=== PATIENT | male | born 1985 | race American Indian/Alaskan Native ===

== ENCOUNTER 2017-04-24 14:04 | Emergency (ER) | payer SELFPAY ==
[2017-04-24 14:34] VITALS: BMI 46.8
[2017-04-24 14:47] VITALS: RESP 18; TEMP 98.3
--- NOTE | 2017-04-24 15:06 | ED PDOC ---
Arrival/HPI - General Chief Complaint: Weakness/Neurological Deficit Time Seen by Provider: 04/24/17 14:54 Historian: Patient - History of Present Illness Time/Duration: Other (Approximately 3 weeks) Symptom Onset: Gradual Symptom Course: Unchanged Severity Level: Mild Associated Symptoms (Text): 04/24/17 15:04 Patient complains of approximately a 3 week history of numbness in his bilateral feet and his right hand. There is no weakness. No difficulty with ADLs. No difficulty with gait. No speech impediment. No headache dizziness or lightheadedness. No nausea or vomiting. No chest pain palpitations or dyspnea. Patient reports that he works 2 jobs and is on his feet approximately 17 hours per day. He complains of bilateral lower extremity swelling, though I appreciate no edema. Past Medical History - Infectious Disease Hx of Infectious Diseases: None - Tetanus Immunization Tetanus Immunization: Unknown - Past Medical History Past Medical History: No Previous - Cardiac Hx Cardiac Disorders: Yes Hx Hypertension: Yes Other/Comment: ABNORMAL STRESS TEST 25 YRS AGO-REFUSED CARD CATH. - Pulmonary Hx Respiratory Disorders: Yes Hx Asthma: Yes - Neurological Hx Neurological Disorder: No - HEENT Hx HEENT Disorder: No - Renal Hx Renal Disorder: Yes Hx Kidney Stones: Yes (NO SX) - Endocrine/Metabolic Hx Endocrine Disorders: No - Hematological/Oncological Hx Blood Disorders: No - Integumentary Hx Dermatological Disorder: No - Musculoskeletal/Rheumatological Hx Musculoskeletal Disorders: No Hx Falls: No - Gastrointestinal Hx Gastrointestinal Disorders: No - Genitourinary/Gynecological Hx Genitourinary Disorders: No - Psychiatric Hx Psychophysiologic Disorder: Yes (SMOKES CIGARS OCCASIONALLY, EOTH SOCIALLY) Hx Depression: Yes Hx Substance Use: No Other/Comment: OBESTIY - Past Surgical History Past Surgical History: No Previous - Anesthesia Hx Anesthesia: No Hx Anesthesia Reactions: No Hx Malignant Hyperthermia: No - Suicidal Assessment Feels Threatened In Home Enviroment: No Family/Social History - Physician Review Nursing Documentation Reviewed: Yes Family/Social History: Unknown Family HX Smoking Status: Current Some Days Smoker Hx Alcohol Use: Yes (SOCIALLY) Frequency of alcohol use: Socially Hx Substance Use: No Allergies/Home Meds Allergies/Adverse Reactions: Allergies shellfish derived Allergy (Verified 07/04/16 12:49) ANAPHYLAXIS Home Medications: Home Meds Medication Instructions Recorded Confirmed Ezetimibe/Simvastatin 07/04/16 HCTZ/Losartan Potassium [Hyzaar 07/04/16 12.5 mg-50 mg] Review of Systems - Physician Review All systems were reviewed & negative as marked: Yes - Review of Systems Constitutional: Fatigue. absent: Fevers Respiratory: absent: SOB, Cough, Sputum, Wheezing Cardiovascular: absent: Chest Pain, Palpitations, Syncope Gastrointestinal: absent: Abdominal Pain, Constipation, Diarrhea, Nausea, Vomiting Genitourinary Male: absent: Dysuria, Frequency, Hematuria Neurological: absent: Headache, Dizziness, Focal Weakness, Gait Changes, Speech Changes, Facial Droop, Disequilibrium, Seizure Physical Exam Vital Signs Temp Pulse Resp BP Pulse Ox 04/24/17 17:05 69 18 128/69 98 04/24/17 14:06 98.3 F 73 18 130/75 99 Temperature: Afebrile Blood Pressure: Normal Pulse: Regular Respiratory Rate: Normal Appearance: Positive for: Well-Appearing, Non-Toxic, Comfortable, Other (Obese) Pain Distress: None Mental Status: Positive for: Alert and Oriented X 3 - Systems Exam Head: Present: Atraumatic, Normocephalic Pupils: Present: PERRL Extroacular Muscles: Present: EOMI Conjunctiva: Present: Normal Ears: Present: NORMAL TM, Normal Canal. No: Erythema Mouth: Present: Moist Mucous Membranes Pharnyx: No: ERYTHEMA, EXUDATE, TONSILS ENLARGED Neck: Present: Normal Range of Motion. No: Meningeal Signs, MIDLINE TENDERNESS , Paraspinal Tenderness Respiratory/Chest: Present: Clear to Auscultation, Good Air Exchange. No: Respiratory Distress, Accessory Muscle Use Cardiovascular: Present: Regular Rate and Rhythm, Normal S1, S2. No: Murmurs Abdomen: Present: Normal Bowel Sounds. No: Tenderness, Distention, Peritoneal Signs Upper Extremity: Present: Normal Inspection. No: Cyanosis, Edema Lower Extremity: Present: Normal Inspection. No: Edema Neurological: Present: GCS=15, CN II-XII Intact, Speech Normal, Motor Func Grossly Intact, Normal Sensory Function, Normal Cerebellar Funct, Gait Normal Skin: Present: Warm, Dry, Normal Color. No: Rashes Psychiatric: Present: Alert, Oriented x 3, Normal Insight, Normal Concentration Medical Decision Making ED Course and Treatment: 04/24/17 16:59 CT scan is unrevealing. Discharge home on daily baby aspirin to follow with PMD for neurologist referral. Follow-up in the ER as needed. 04/24/17 17:06 Patient reports that his reason for coming today was that he needs a note for work. - Lab Interpretations Lab Results: 04/24/17 15:30 04/24/17 15:30 Lab Results 04/24/17 15:30: Sodium 137, Potassium 4.1, Chloride 104, Carbon Dioxide 24, Anion Gap 13, BUN 9, Creatinine 0.7, Est GFR ( Amer) > 60, Est GFR (Non- Af Amer) > 60, Random Glucose 119 H, Calcium 9.2, Phosphorus 3.4, Magnesium 2.0 , Total Bilirubin 0.9, AST 36, ALT 38, Alkaline Phosphatase 58, Lactate Dehydrogenase 574, Total Creatine Kinase 404 H, CK-MB (CK-2) Pending, CK-MB (CK- 2) % Pending, Troponin I < 0.01, Total Protein 7.8, Albumin 4.1, Globulin 3.7, Albumin/Globulin Ratio 1.1 04/24/17 15:30: PT 11.1, INR 1.03, APTT 28.3 04/24/17 15:30: WBC 5.5, RBC 5.40, Hgb 14.8, Hct 45.3, MCV 83.9, MCH 27.4, MCHC 32.7, RDW 14.3, Plt Count 299, MPV 9.4, Gran % 55.4, Lymph % (Auto) 30.6, Mckean % (Auto) 6.7 H, Eos % (Auto) 6.9 H, Baso % (Auto) 0.4, Gran # 3.04, Lymph # 1.7 , Mckean # 0.4, Eos # 0.4, Baso # 0.02 - RAD Interpretation Radiology Orders: 04/24/17 15:03 HEAD W/O CONTRAST [CT] Stat CT scan of the head as read by the radiologist shows no acute findings. 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 Ulcer: No History Surgical Site Infection Following: None - Disposition Have Diagnosis and Disposition been Completed?: Yes Diagnosis: Numbness Disposition: HOME/ ROUTINE Disposition Time: 17:00 Patient Plan: Discharge Patient Problems: Current Active Problems Problem Status Onset Numbness Acute Condition: GOOD Discharge Instructions (ExitCare): Paresthesia (ED) Additional Instructions: Follow-up with PMD for neurology referral. Follow-up in the ER as needed. Daily baby aspirin.
[2017-04-24 15:37] LABS: ADD MANUAL DIFF? NO
[2017-04-24 15:42] LABS: BASO # 0.02 K/mm3 (0.0-2.0); BASO % 0.4 % (0.0-3.0); EOS # 0.4 (0.0-0.7); EOS % 6.9 % (1.5-5.0); GRAN # 3.04 (1.4-6.5); GRAN % 55.4 % (50.0-68.0); HEMATOCRIT 45.3 % (42.0-52.0); LYMPH # 1.7 (1.2-3.4); LYMPH % 30.6 % (22.0-35.0); MEAN CELL VOLUME 83.9 fL (80.0-105.0); MEAN CORPUSCULAR HEMOGLOBIN 27.4 pg (25.0-35.0); MEAN CORPUSCULAR HGB CONC 32.7 g/dl (31.0-37.0); MEAN PLATELET VOLUME 9.4 fl (7.0-11.0); MONO # 0.4 (0.1-0.6); MONO % 6.7 % (1.0-6.0); PLATELET COUNT 299 10^3/uL (120.0-450.0); RED CELL DISTRIBUTION WIDTH 14.3 % (11.5-14.5); WHITE BLOOD COUNT 5.5 10^3/ul (4.5-11.0)
[2017-04-24 16:06] LABS: INR 1.03 (0.93-1.08); PARTIAL THROMBOPLASTIN TIME 28.3 Seconds (23.7-30.8)
--- NOTE | 2017-04-24 16:06 | CT ---
PROCEDURE: CT HEAD WITHOUT CONTRAST. HISTORY: numbness COMPARISON: 02/20/2015. TECHNIQUE: Axial computed tomography images were obtained through the head/brain without intravenous contrast. Radiation dose: Total exam DLP = 822.62 mGy-cm. This CT exam was performed using one or more of the following dose reduction techniques: Automated exposure control, adjustment of the mA and/or kV according to patient size, and/or use of iterative reconstruction technique. FINDINGS: HEMORRHAGE: No intracranial hemorrhage. BRAIN: No mass effect or edema. No atrophy or chronic microvascular ischemic changes. VENTRICLES: Unremarkable. No hydrocephalus. CALVARIUM: Unremarkable. PARANASAL SINUSES: Chronic and incompletely visualized right maxillary sinusitis MASTOID AIR CELLS: Unremarkable as visualized. No inflammatory changes. OTHER FINDINGS: None. IMPRESSION: No acute intracranial abnormalities. No significant findings to account for the clinical presentation.
[2017-04-24 16:49] LABS: TROPONIN I < 0.01 ng/mL
[2017-04-24 16:50] LABS: ALB/GLOB RATIO 1.1 (1.1-1.8); ALKALINE PHOSPHATASE 58 U/L (38-133); ALT/SGPT 38 U/L (7-56); AST/SGOT 36 U/L (15-59); BILIRUBIN,TOTAL 0.9 mg/dL (0.2-1.3); BLOOD UREA NITROGEN 9 mg/dL (7-21); CALCIUM 9.2 mg/dL (8.4-10.5); CARBON DIOXIDE 24 mmol/L (21-33); CHLORIDE 104 mmol/L (95-110); GFR AFRICAN-AMERICAN > 60; GLUCOSE,RANDOM 119 mg/dL (70-110); PHOSPHOROUS 3.4 mg/dL (2.5-4.5); POTASSIUM 4.1 mmol/L (3.6-5.0); SODIUM 137 mmol/L (132-148); TOTAL PROTEIN 7.8 g/dL (5.8-8.3)
[2017-04-24 17:06] VITALS: BP 128/69; PULSE 69; O2SAT 98
== END 2017-04-24 19:00 | disposition home or self-care (01) ==
LOC: ED 14:04
DX: R20.0 Anesthesia of skin (principal)

== ENCOUNTER 2018-05-16 05:26 | Emergency (ER) | payer OTHER ==
[2018-05-16 05:34] VITALS: TEMP 98; BMI 45.3
--- NOTE | 2018-05-16 05:49 | ED PDOC ---
Arrival/HPI - General Chief Complaint: Medical Clearance Time Seen by Provider: 05/16/18 05:32 Historian: Patient - History of Present Illness Narrative History of Present Illness (Text): 05/16/18 05:45 Efrain Sharif is a 32 year old male, whose past medical history includes asthma, who presents to the Emergency department complaining of nausea tonight. 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 Patient states he felt nauseous, had 1 episode of vomiting, and now feels better. Patient reports he currently feel tired, but denies any other complaints. Patient denies any fever, chills, chest pain, shortness of breath, neck pain, headache, or any other complaints. Symptom Onset: Gradual Symptom Course: Unchanged Activities at Onset: Light Context: Work Past Medical History - Provider Review Nursing Documentation Reviewed: Yes - Infectious Disease Hx of Infectious Diseases: None - Tetanus Immunization Tetanus Immunization: Unknown - Past Medical History Past Medical History: No Previous - Cardiac Hx Cardiac Disorders: Yes Hx Hypertension: Yes Other/Comment: ABNORMAL STRESS TEST 25 YRS AGO-REFUSED CARD CATH. - Pulmonary Hx Respiratory Disorders: Yes Hx Asthma: Yes - Neurological Hx Neurological Disorder: No - HEENT Hx HEENT Disorder: No - Renal Hx Renal Disorder: Yes Hx Kidney Stones: Yes (NO SX) - Endocrine/Metabolic Hx Endocrine Disorders: No - Hematological/Oncological Hx Blood Disorders: No - Integumentary Hx Dermatological Disorder: No - Musculoskeletal/Rheumatological Hx Musculoskeletal Disorders: No Hx Falls: No - Gastrointestinal Hx Gastrointestinal Disorders: No - Genitourinary/Gynecological Hx Genitourinary Disorders: No - Psychiatric Hx Psychophysiologic Disorder: Yes (SMOKES CIGARS OCCASIONALLY, EOTH SOCIALLY) Hx Depression: Yes Hx Substance Use: No Other/Comment: OBESTIY - Past Surgical History Past Surgical History: No Previous - Anesthesia Hx Anesthesia: No Hx Anesthesia Reactions: No Hx Malignant Hyperthermia: No - Suicidal Assessment Feels Threatened In Home Enviroment: No Family/Social History - Physician Review Nursing Documentation Reviewed: Yes Family/Social History: Unknown Family HX Hx Alcohol Use: Yes (SOCIALLY) Hx Substance Use: No Allergies/Home Meds Allergies/Adverse Reactions: Allergies shellfish derived Allergy (Mild, Verified 05/16/18 05:36) ANAPHYLAXIS Home Medications: Home Meds Medication Instructions Recorded Confirmed No Known Home Med 05/16/18 05/16/18 Review of Systems - Physician Review All systems were reviewed & negative as marked: Yes - Review of Systems Constitutional: absent: Fevers Eyes: Normal ENT: Normal Respiratory: Normal. absent: SOB, Cough Cardiovascular: Normal. absent: Chest Pain Gastrointestinal: Nausea, Vomiting Genitourinary Male: Normal. absent: Dysuria, Frequency, Hematuria, Urinary Output Changes Musculoskeletal: Normal. absent: Neck Pain Skin: Normal. absent: Rash Neurological: Normal. absent: Headache, Dizziness Endocrine: Normal Hemo/Lymphatic: Normal Psychiatric: Normal Physical Exam Vital Signs Reviewed: Yes Vital Signs Temp Pulse Resp BP Pulse Ox 05/16/18 05:33 98.0 F 76 16 131/71 96 Temperature: Afebrile Blood Pressure: Normal Pulse: Regular Respiratory Rate: Normal Appearance: Positive for: Well-Appearing, Non-Toxic, Comfortable Pain Distress: None Mental Status: Positive for: Alert and Oriented X 3 - Systems Exam Head: Present: Atraumatic, Normocephalic Pupils: Present: PERRL Extroacular Muscles: Present: EOMI Conjunctiva: Present: Normal Mouth: Present: Moist Mucous Membranes Neck: Present: Normal Range of Motion Respiratory/Chest: Present: Clear to Auscultation, Good Air Exchange. No: Respiratory Distress, Accessory Muscle Use Cardiovascular: Present: Regular Rate and Rhythm, Normal S1, S2. No: Murmurs Abdomen: No: Tenderness, Distention, Peritoneal Signs Back: Present: Normal Inspection Upper Extremity: Present: Normal Inspection. No: Cyanosis, Edema Lower Extremity: Present: Normal Inspection. No: Edema Neurological: Present: GCS=15, CN II-XII Intact, Speech Normal Skin: Present: Warm, Dry, Normal Color. No: Rashes Psychiatric: Present: Alert, Oriented x 3, Normal Insight, Normal Concentration Medical Decision Making ED Course and Treatment: 05/16/18 05:45 Impression: 32 year old male complaining of nausea, vomiting, and fatigue after being exposed to CO2 tonight. Plan: -- Zofran -- Reassess and disposition Progress Notes: 05/16/18 07:06 Case endorsed to .Pt. symptoms c/w CO2 exposure.No longer nauseous but feels sleepy.No difficulty breathing /normal pulse oximetry.Will observe in ED.Final disposition to follow. - Medication Orders Current Medication Orders: Discontinued Medications Ondansetron HCl (Zofran Odt) 4 mg PO STAT STA Stop: 05/16/18 05:49 Last Admin: 05/16/18 06:08 Dose: 4 mg - Scribe Statement The provider has reviewed the documentation as recorded by the Delta Wagoner Provider Scribe Attestation: All medical record entries made by the Scribe were at my direction and personally dictated by me. I have reviewed the chart and agree that the record accurately reflects my personal performance of the history, physical exam, medical decision making, and the department course for this patient. I have also personally directed, reviewed, and agree with the discharge instructions and disposition. Disposition/Present on Arrival - Present on Arrival Any Indicators Present on Arrival: No History of DVT/PE: No History of Uncontrolled Diabetes: No Urinary Catheter: No History of Decub. Ulcer: No History Surgical Site Infection Following: None - Disposition Have Diagnosis and Disposition been Completed?: No Diagnosis: Carbon dioxide narcosis Disposition Time: 07:00 Patient Problems: Current Active Problems Problem Status Onset Carbon dioxide narcosis Acute Condition: STABLE Referrals: FAMILY PROVIDER,NO [Primary Care Provider] - Follow up with primary Forms: [employer] (Pakistani)
--- NOTE | 2018-05-16 07:58 | ED PDOC ---
Physical Exam Vital Signs Reviewed: Yes Vital Signs Temp Pulse Resp BP Pulse Ox 05/16/18 05:33 98.0 F 76 16 131/71 96 Temperature: Afebrile Blood Pressure: Normal Pulse: Regular Respiratory Rate: Normal Medical Decision Making ED Course and Treatment: 05/16/18 07:55 Patient endorsed to me by Dr. Hernandez, awaiting final disposition after Emergency department observation. On re-evaluation, patient states he feels better and is in no acute distress. I have discussed the plan with the patient, who expresses understanding. Patient in agreement with plan to be discharged home. Patient is stable for discharge. Patient was instructed to follow up with physician or return if symptoms worsen or new concerning symptoms arise. - Medication Orders Current Medication Orders: Discontinued Medications Ondansetron HCl (Zofran Odt) 4 mg PO STAT STA Stop: 05/16/18 05:49 Last Admin: 05/16/18 06:08 Dose: 4 mg - Scribe Statement The provider has reviewed the documentation as recorded by the Delta Mena Provider Scribe Attestation: All medical record entries made by the Joslynibliliana were at my direction and personally dictated by me. I have reviewed the chart and agree that the record accurately reflects my personal performance of the history, physical exam, medical decision making, and the department course for this patient. I have also personally directed, reviewed, and agree with the discharge instructions and disposition. Disposition/Present on Arrival - Present on Arrival Any Indicators Present on Arrival: No History of DVT/PE: No History of Uncontrolled Diabetes: No Urinary Catheter: No History of Decub. Ulcer: No History Surgical Site Infection Following: None - Disposition Have Diagnosis and Disposition been Completed?: Yes Diagnosis: Carbon dioxide narcosis Disposition: HOME/ ROUTINE Disposition Time: 07:55 Patient Problems: Current Active Problems Problem Status Onset Carbon dioxide narcosis Acute Condition: IMPROVED Additional Instructions: SYEDA CAMPA, thank you for letting us take care of you today. The emergency medical care you received today was directed at your acute symptoms. If you were prescribed any medication, please fill it and take as directed. It may take several days for your symptoms to resolve. Return to the Emergency Department if your symptoms worsen, do not improve, or if you have any other problems. Please contact your doctor or call one of the physicians/clinics you have been referred to that are listed on the Patient Visit Information form that is included in your discharge packet. Bring any paperwork you were given at discharge with you along with any medications you are taking to your follow up visit. Our treatment cannot replace ongoing medical care by a primary care provider outside of the emergency department. Thank you for allowing the [facility] team to be part of your care today. Follow up with your primary doctor if you have any concerns. Referrals: FAMILY PROVIDER,NO [Primary Care Provider] - Follow up with primary Forms: [employer] ([place]ian), WORK NOTE
[2018-05-16 08:16] VITALS: PULSE 72; RESP 17; O2SAT 95
[2018-05-16 08:18] VITALS: BP 122/50
== END 2018-05-16 09:06 | disposition home or self-care (01) ==
LOC: ED 05:26
DX: T59.7X1A Toxic effect of carbon dioxide, accidental (unintentional), initial encounter (principal); Y92.89 Other specified places as the place of occurrence of the external cause